=== PATIENT | female | born 1935 | race Caucasian/White ===

== ENCOUNTER 2024-08-19 07:47 | Observation (INO) ==
[2024-08-19] MEDS ORDERED: IOPAMIDOL 100 ML BOTTLE IV ONE (07:48)
[2024-08-19] MEDS ORDERED: GADOBENATE DIMEGLUMINE 15 ML/VIAL IV ONE (07:48)
[2024-08-19 08:29] LABS: Basophils # (Auto) 0.02 K/mcL (0.00-0.30); Basophils % (Auto) 0.5 % (0.0-2.0); Eosinophils # (Auto) 0.06 K/mcL (0.00-0.70); Eosinophils % (Auto) 1.6 % (0.0-7.0); Hematocrit 42.2 % (34.1-44.9); Lymphocytes # (Auto) 1.48 K/mcL (1.50-4.80); Lymphocytes % (Auto) 40.3 % (15.5-49.0); Mean Cell Volume 97.9 fL (80.0-100.0); Mean Corpuscular HGB Conc 33.2 g/dL (31.0-36.0); Mean Platelet Volume 10.9 fL (8.8-12.5); Monocytes # (Auto) 0.63 K/mcL (0.10-0.90); Monocytes % (Auto) 17.2 % (1.0-12.0); Neutrophils % (Auto) 40.1 % (38.0-78.0); Platelet Count 146 K/mcL (140-440); RBC 4.31 M/mcL (3.59-5.38); WBC 3.7 K/mcL (4.5-11.0)
[2024-08-19 08:41] LABS: Partial Thromboplastin Time 31.2 sec (20.0-37.0)
[2024-08-19 08:42] LABS: Prothrombin Time 13.8 sec (11.9-14.5)
[2024-08-19] MEDS: LORazepam 1 MG TABLET PO ONE (08:51)
[2024-08-19 08:54] LABS: ALT/SGPT 14 U/L (<40); AST/SGOT 27 U/L (<32); Albumin 4.4 gm/dL (3.2-5.2); Albumin/Globulin Ratio 1.6 (1.0-2.3); Alkaline Phosphatase 66 U/L (39-117); Bilirubin,Total 0.6 mg/dL (0.1-1.0); Blood Urea Nitrogen 19 mg/dL (8-23); Calcium 9.5 mg/dL (8.6-10.4); Carbon Dioxide 21 mmol/L (22-30); Chloride 105 mmol/L (96-108); Globulin 2.7 gm/dL (2.2-3.7); Glomerular Filtration Rate 41; Glucose 126 mg/dL (70-105); Potassium 4.2 mmol/L (3.3-5.1); Sodium 141 mmol/L (133-145)
[2024-08-19] MEDS: LORazepam 2 MG/ML VIAL IV ONE (08:55)
[2024-08-19] MEDS: 0.9 % SODIUM CHLORIDE 500 ML IV ONE (08:58)
[2024-08-19 09:30] LABS: Appearance,Urine Slightly Cloudy (Clear); Bilirubin,Urine Negative (Negative); Color,Urine Yellow; Glucose,Urine (UA) Negative (Negative); Ketones,Urine Negative (Negative); Leukocyte Esterase,Urine Negative /uL (Negative); Nitrate,Urine Negative (Negative); Protein,Urine Negative (Negative); Specific Gravity,Urine 1.015 (1.000-1.035); Urine Blood Negative ery/mcL (Negative); Urine RBC 0 /hpf (0-3); Urine Squamous Epithelial Cell 4 /hpf (0-4); Urine WBC 0 /hpf (0-4); Urobilinogen,Urine Normal
[2024-08-19] MEDS: hydrALAZINE 20 MG/ML VIAL IV ONE ×2 (10:34→11:16)
[2024-08-19] MEDS: ASPIRIN 81 MG TAB.CHEW CHEWED ONE (11:11)
[2024-08-19] MEDS: CLOPIDOGREL 75 MG TABLET PO ONE (11:11)
[2024-08-19] MEDS: ATORVASTATIN 40 MG TABLET PO ONE (11:11)
[2024-08-19] MEDS ORDERED: SENNOSIDES 1 TABLET PO PRN (14:14)
[2024-08-19] MEDS ORDERED: ONDANSETRON 4 MG/2 ML VIAL IV PRN (14:14)
[2024-08-19] MEDS ORDERED: hydrALAZINE 20 MG/ML VIAL IV PRN (14:14)
[2024-08-19] MEDS ORDERED: IPRATROPIUM/ALBUTEROL 3 ML AMPUL.NEB NEB PRN (14:14)
[2024-08-19] MEDS ORDERED: LACTULOSE 20 GM/30 ML ORAL.SOL PO PRN (14:14)
[2024-08-19] MEDS: 0.9 % SODIUM CHLORIDE 1,000 ML IV SCH (15:27)
[2024-08-19] MEDS: GABAPENTIN 100 MG CAPSULE PO SCH (15:32)
[2024-08-19] MEDS: 0.9 % SODIUM CHLORIDE 10 ML SYRINGE IV SCH (15:39)
[2024-08-19] MEDS: LACTOBACILLUS 1 CAPSULE PO SCH (18:02)
[2024-08-19] MEDS: ACETAMINOPHEN 325 MG TABLET PO PRN (20:51)
[2024-08-19] MEDS: DOCUSATE SODIUM 100 MG CAPSULE PO SCH (20:53)
[2024-08-20 06:31] LABS: Basophils # (Auto) 0.02 K/mcL (0.00-0.30); Basophils % (Auto) 0.6 % (0.0-2.0); Eosinophils # (Auto) 0.07 K/mcL (0.00-0.70); Eosinophils % (Auto) 1.9 % (0.0-7.0); Hematocrit 40.7 % (34.1-44.9); Hemoglobin 13.7 g/dL (11.2-15.7); Lymphocytes # (Auto) 1.03 K/mcL (1.50-4.80); Lymphocytes % (Auto) 28.7 % (15.5-49.0); Mean Cell Volume 96.9 fL (80.0-100.0); Mean Corpuscular HGB Conc 33.7 g/dL (31.0-36.0); Mean Platelet Volume 10.9 fL (8.8-12.5); Monocytes # (Auto) 0.84 K/mcL (0.10-0.90); Monocytes % (Auto) 23.4 % (1.0-12.0); Neutrophils % (Auto) 44.8 % (38.0-78.0); Platelet Count 139 K/mcL (140-440); Red Cell Distribution Width 14.2 % (11.5-14.5); WBC 3.6 K/mcL (4.5-11.0)
[2024-08-20 06:44] LABS: Blood Urea Nitrogen 18 mg/dL (8-23); Calcium 9.4 mg/dL (8.6-10.4); Carbon Dioxide 22 mmol/L (22-30); Chloride 106 mmol/L (96-108); Glomerular Filtration Rate 45; Glucose 92 mg/dL (70-105); Sodium 141 mmol/L (133-145)
[2024-08-20] MEDS: PANTOPRAZOLE 40 MG TABLET PO SCH (07:14)
[2024-08-20 08:16] LABS: HDL Cholesterol 68 mg/dL (>40); LDL Cholesterol,Calculated 151 mg/dL (<100); Non-HDL Cholesterol 166 mg/dL (<130); Triglycerides 76 mg/dL (<150)
[2024-08-20] MEDS ORDERED: MAGNESIUM GLYCINATE 100 MG PO SCH (09:00)
[2024-08-20] MEDS: ASPIRIN 81 MG TAB.CHEW CHEWED SCH (09:24)
[2024-08-20 09:25] LABS: Estimated Average Glucose(eAG) 108 mg/dL; Hemoglobin A1C 5.4 % Hgb (4.0-6.0)
[2024-08-20] MEDS: ATORVASTATIN 40 MG TABLET PO SCH (09:25)
[2024-08-20] MEDS: VITAMIN D3 25 MCG TABLET PO SCH (09:29)
[2024-08-20] MEDS: CLOPIDOGREL 75 MG TABLET PO SCH (09:29)
[2024-08-20] MEDS: ASCORBIC ACID 500 MG TABLET PO SCH (10:24)
[2024-08-20] MEDS: SUPER BEETS PO SCH (10:24)
[2024-08-20] MEDS: NERVE PO SCH (10:24)
[2024-08-20 12:06] VITALS: TEMP 98.2; O2SAT 96
[2024-08-21] MEDS ORDERED: ESTRADIOL VAG CREAM 42GM TUBE VAG SCH (08:00)
== END 2024-08-20 13:10 | disposition home health service (06) ==
LOC: ICU 07:47 → ED 07:47 → ICU 14:15
PROVIDERS: ADMIT Internal Medicine; ATTEND Internal Medicine